=== PATIENT | female | born 2000 | race Asian ===

== ENCOUNTER → 2024-07-01 | Outpatient (CLI) | payer OTHER, SELFPAY ==
[2024-07-01 17:59] LABS: hCG Titer Quant., Serum < 1 mIU/mL (1-3)
[2024-07-01 18:08] LABS: Follicle Stimulating Hormone 2.1 mIU/mL; T4 Free Direct 0.97 ng/dL (0.76-1.46)
[2024-07-03 07:07] LABS: HCG BETA-SUBUNIT QUANT. < 1 mIU/mL (.)
[2024-07-06 09:07] LABS: Androstenedione 165 ng/dL (41-262); Sex Hormone-binding Globulin 24.3 nmol/L (24.6-122.0); Testosterone, % Free 2.75 % (0.50-2.80); Testosterone, Free 1.29 ng/dL (0.10-0.85); Testosterone, Total 47 ng/dL (13-71)
== END | disposition home or self-care (01) ==
LOC: MTLAB 15:33
PROVIDERS: PCP Internal Medicine; Referring Provider Dermatology Pediatric Dermatology; Visit Provider Dermatology Pediatric Dermatology
DX: E28.2 Polycystic ovarian syndrome (principal); Z79.899 Other long term (current) drug therapy
CPT/HCPCS: 36415; 82157; 82627; 83001; 84270; 84402; 84403; 84439; 84443; 84702; 82626